=== PATIENT | male | born 1930 | race Caucasian/White ===

== ENCOUNTER 2017-11-07 10:18 | Inpatient (IN) | payer MEDICARE, OTHER ==
[~2017-11-07] VITALS: Ht 160 cm; Wt 68.0 kg
[2017-11-07 10:26] VITALS: BP 122/61; PULSE 66; RESP 20; TEMP 97.8; O2SAT 98
--- NOTE | 2017-11-07 10:54 | RADRPT ---
EXAM DATE/TIME: 11/07/2017 10:44 [facility] COMPARISON: No previous studies available for comparison. INDICATIONS : Coughing up blood for three days. MEDICAL HISTORY : None. SURGICAL HISTORY : No pertinent surgical history. ENCOUNTER: Initial ACUITY: 3 days PAIN SCORE: 0/10 LOCATION: Bilateral chest FINDINGS: PA and lateral views of the chest demonstrate the lungs to be symmetrically aerated without evidence of mass, infiltrate or effusion. There is mild elevation left hemidiaphragm. The heart is at the uppe r limits of normal in terms of size. Aorta is calcified. Osseous structures are intact. CONCLUSION: No acute disease. Rosalio Palumbo Jr., MD on November 07, 2017 at 10:51 Board Certified Radiologist. This report was verified electronically.
[2017-11-07 11:54] LABS: AUTOMATED NEUTROPHIL # 6.1 TH/MM3 (1.8-7.7); BASOPHIL % 0.6 % (0.0-2.0); EOSINOPHIL # 0.1 TH/MM3 (0-0.4); EOSINOPHIL % 0.7 % (0.0-4.0); HEMATOCRIT 30.3 % (39.0-51.0); HEMOGLOBIN 10.3 GM/DL (13.0-17.0); LYMPH % 11.3 % (9.0-44.0); LYMPHOCYTE # 0.8 TH/MM3 (1.0-4.8); MEAN CELL VOLUME 83.7 FL (80.0-100.0); MEAN CORPUSCULAR HEMOGLOBIN 28.6 PG (27.0-34.0); MEAN CORPUSCULAR HGB CONC 34.2 % (32.0-36.0); MEAN PLATELET VOLUME 7.8 FL (7.0-11.0); MONO % 5.3 % (0.0-8.0); MONOCYTE # 0.4 TH/MM3 (0-0.9); NEUT % 82.1 % (16.0-70.0); PLATELET COUNT 219 TH/MM3 (150-450); RED BLOOD COUNT 3.61 MIL/MM3 (4.50-5.90); RED CELL DISTRIBUTION WIDTH 17.1 % (11.6-17.2); WHITE BLOOD COUNT 7.5 TH/MM3 (4.0-11.0)
[2017-11-07 12:01] LABS: INTERNATIONAL NORMALIZED RATIO 1.3 RATIO; PROTHROMBIN TIME - PATIENT 13.1 SEC (9.8-11.6)
[2017-11-07 12:10] LABS: ALBUMIN 3.4 GM/DL (3.4-5.0); ALT (GPT) 19 U/L (12-78); AST (GOT) 19 U/L (15-37); BICARBONATE 26.7 MEQ/L (21.0-32.0); BLOOD UREA NITROGEN 19 MG/DL (7-18); CALCIUM 8.9 MG/DL (8.5-10.1); CHLORIDE 107 MEQ/L (98-107); GLOMERULAR FILTRATION RATE 41 ML/MIN (>89); GLUCOSE,RANDOM 118 MG/DL (74-106); SODIUM (NA) 141 MEQ/L (136-145)
[2017-11-07 12:13] LABS: ALKALINE PHOSPHATASE 48 U/L (45-117); TOTAL BILIRUBIN ADULT 0.9 MG/DL (0.2-1.0); TOTAL PROTEIN 6.9 GM/DL (6.4-8.2)
[2017-11-07 14:06] VITALS: BP 143/71; PULSE 66; RESP 25; O2SAT 100
--- NOTE | 2017-11-07 14:12 | PD ---
HPI Chief Complaint: Respiratory Symptoms Time Seen by Provider: 14:00 Travel History International Travel<30 days: No Contact w/Intl Traveler<30days: No Traveled to known affect area: No History of Present Illness HPI 87 y/o male presents with coughing up blood for the past couple of days. He denies any other concurrent complaints. He does note history of prior blood clots to his arms and is currently on an aspirin. He denies specific modifying factors. Quality is bright red. He states when he has had this before he has had pneumonia. History is limited from patient. PFSH Past Medical History Atrial Fibrillation: Yes COPD: Yes Diminished Hearing: Yes ([place]) Genitourinary: Yes (PROSTATE ) Medical other: Yes (BLOT CLOT TO ARM ) Neurologic: Yes (MENINGIOMA ) Respiratory: Yes Pneumonia: Yes Tetanus Vaccination: Unknown Influenza Vaccination: Yes Past Surgical History Abdominal Surgery: Yes (COLON RESECTION ) Other Surgery: Yes (THYROIDECTOMY, L ADRENAL GLAND REMOVED ) Social History Alcohol Use: Yes (BUDLIGHT PER DAY ) Tobacco Use: No (QUIT 1982 ) Substance Use: No Allergies-Medications (Allergen,Severity, Reaction): Coded Allergies: No Known Allergies (Verified Allergy, Unknown, 11/07/17) Review of Systems Except as stated in HPI: all other systems reviewed are Neg Physical Exam Narrative GENERAL: 87-year-old male in no apparent distress SKIN: Focused skin assessment warm/dry. HEAD: Atraumatic. Normocephalic. EYES: No scleral icterus. No injection or drainage. ENT: No nasal bleeding or discharge. Mucous membranes pink and moist. NECK: Trachea midline. CARDIOVASCULAR: irregular rate and rhythm. No murmur appreciated. RESPIRATORY: No accessory muscle use. Clear to auscultation. Breath sounds equal bilaterally. MUSCULOSKELETAL: No obvious deformities. No clubbing. No cyanosis. No edema. NEUROLOGICAL: Awake. moves extremities. Normal speech. Data Data Last Documented VS Vital Signs Date Time Temp Pulse Resp B/P (MAP) Pulse Ox O2 Delivery O2 Flow Rate FiO2 11/07/17 15:00 60 18 99 Room Air 11/07/17 10:26 97.8 Orders Orders Complete Blood Count With Diff (11/07/17 10:28) Comprehensive Metabolic Panel (11/07/17 10:28) Prothrombin Time / Inr (Pt) (11/07/17 10:28) Act Partial Throm Time (Ptt) (11/07/17 10:28) Type And Screen (11/07/17 10:28) Chest, Pa & Lat (11/07/17 ) Electrocardiogram (11/07/17 ) Ct Pulmonary Angiogram (11/07/17 ) Iodixanol 320 Inj (Rad Spec) (Visipaque (11/07/17 14:51) Ceftriaxone Inj (Rocephin Inj) (11/07/17 15:15) Azithromycin Inj (Zithromax Inj) (11/07/17 15:15) Admit Order (Ed Use Only) (11/07/17 15:22) Labs Laboratory Tests Test 11/07/17 10:58 White Blood Count 7.5 TH/MM3 Red Blood Count 3.61 MIL/MM3 Hemoglobin 10.3 GM/DL Hematocrit 30.3 % Mean Corpuscular Volume 83.7 FL Mean Corpuscular Hemoglobin 28.6 PG Mean Corpuscular Hemoglobin Concent 34.2 % Red Cell Distribution Width 17.1 % Platelet Count 219 TH/MM3 Mean Platelet Volume 7.8 FL Neutrophils (%) (Auto) 82.1 % Lymphocytes (%) (Auto) 11.3 % Monocytes (%) (Auto) 5.3 % Eosinophils (%) (Auto) 0.7 % Basophils (%) (Auto) 0.6 % Neutrophils # (Auto) 6.1 TH/MM3 Lymphocytes # (Auto) 0.8 TH/MM3 Monocytes # (Auto) 0.4 TH/MM3 Eosinophils # (Auto) 0.1 TH/MM3 Basophils # (Auto) 0.0 TH/MM3 CBC Comment DIFF FINAL Differential Comment Prothrombin Time 13.1 SEC Prothromb Time International Ratio 1.3 RATIO Activated Partial Thromboplast Time 33.0 SEC Blood Urea Nitrogen 19 MG/DL Creatinine 1.60 MG/DL Random Glucose 118 MG/DL Total Protein 6.9 GM/DL Albumin 3.4 GM/DL Calcium Level 8.9 MG/DL Alkaline Phosphatase 48 U/L Aspartate Amino Transf (AST/SGOT) 19 U/L Alanine Aminotransferase (ALT/SGPT) 19 U/L Total Bilirubin 0.9 MG/DL Sodium Level 141 MEQ/L Potassium Level 3.6 MEQ/L Chloride Level 107 MEQ/L Carbon Dioxide Level 26.7 MEQ/L Anion Gap 7 MEQ/L Estimat Glomerular Filtration Rate 41 ML/MIN MDM Medical Decision Making Medical Screen Exam Complete: Yes Emergency Medical Condition: Yes Medical Record Reviewed: Yes (Past history confirmed) Interpretation(s) CBC & BMP Diagram 11/07/17 10:58 Total Protein 6.9, Albumin 3.4, Calcium Level 8.9, Alkaline Phosphatase 48, Aspartate Amino Transf (AST/SGOT) 19, Alanine Aminotransferase (ALT/SGPT) 19, Total Bilirubin 0.9 Last 24 hours Impressions Chest X-Ray 11/07/17 0000 Signed Impressions: Service Date/Time: Tuesday, November 07, 2017 10:44 - CONCLUSION: No acute disease. Rosalio Palumbo Jr., MD CT Angiography 11/07/17 0000 Signed Impressions: Service Date/Time: Tuesday, November 07, 2017 14:40 - CONCLUSION: Bibasilar airspace disease worse on the left. Source of hemorrhage is not identified. Presumed location would be the left lower lobe. Josef Pandya MD FACR Differential Diagnosis PE, pneumonia, URI, anemia Narrative Course We will add on CT chest protocol from triage and reevaluate Review of CT will dose with antibiotics and admit. Will have hemoglobin trended given last one was normal multiple years ago. Physician Communication Physician Communication dr crocker requests full admit given bibasilar airspace disease Diagnosis Primary Impression: Hemoptysis Additional Impressions: Bilateral pneumonia Qualified Codes: J18.9 - Pneumonia, unspecified organism Anemia Qualified Codes: D64.9 - Anemia, unspecified Admitting Information Admitting Physician Requests: Admit Rhona León MD Nov 07, 2017 14:12
[2017-11-07] MEDS ORDERED: IODIXANOL 320 MG/ML 10 ML VIAL (for RAD SPEC) IVCONTRAST ONE (14:51)
[2017-11-07 15:00] VITALS: BP 143/76; PULSE 60; RESP 18; O2SAT 99
--- NOTE | 2017-11-07 15:07 | RADRPT ---
EXAM DATE/TIME: 11/07/2017 14:40 [facility] COMPARISON: No previous studies available for comparison. INDICATIONS : Short of breath with coughing up blood. IV CONTRAST: 65 cc Visipaque (iodixanol) IV RADIATION DOSE: 21.07 CTDIvol (mGy) MEDICAL HISTORY : Meningioma, Afib SURGICAL HISTORY : Colon resection. Thyroidectomy. ENCOUNTER: Initial ACUITY: 2 days PAIN SCALE: 5/10 LOCATION: Bilateral chest TECHNIQUE: Volumetric scanning of the chest was performed using a pulmonary embolism protocol MIP images were re constructed. Using automated exposure control and adjustment of the mA and/or kV according to patien t size, radiation dose was kept as low as reasonably achievable to obtain optimal diagnostic quality images. DICOM format image data is available electronically for review and comparison. Follow-up recommendations for detected pulmonary nodules are based at a minimum on nodule size and pa tient risk factors according to Fleischner Society Guidelines. FINDINGS: Minimal bibasilar parenchymal changes worse on the left. The parenchymal changes the left look like hemorrhage. There is no axillary adenopathy. There is no mediastinal adenopathy. There is no evidence for central pulmonary emboli. There is mild compensated cardiomegaly with minimal coronary calcifications. Scattered well-circumscribed low density lesions are present in the liver incompletely evaluated on t vivek's exam but probably cysts. CONCLUSION: Bibasilar airspace disease worse on the left. Source of hemorrhage is not identified. Presumed loca tion would be the left lower lobe. Josef Pandya MD FACR on November 07, 2017 at 15:03 Board Certified Radiologist. This report was verified electronically.
[2017-11-07] MEDS ORDERED: AZITHROMYCIN INJ 500 MG in SODIUM CHLOR 0.9% 250 ML INJ 250 ML IV ONE (15:15)
[2017-11-07] MEDS ORDERED: cefTRIAXone INJ 1,000 MG in SODIUM CHLORIDE 0.9% INJ 100 ML IV ONE (15:15)
[2017-11-07] MEDS ORDERED: LIPO150C3 PO (15:34)
[2017-11-07] MEDS ORDERED: LEVO125T4 PO (15:34)
[2017-11-07] MEDS ORDERED: NEXI40CA PO (15:34)
[2017-11-07] MEDS ORDERED: EXFO10TA2 PO (15:34)
[2017-11-07] MEDS ORDERED: FLUT50SP EACH NARE (15:34)
[2017-11-07] MEDS ORDERED: IPRA17I INH (15:34)
[2017-11-07] MEDS ORDERED: ASPI-516 CHEW (15:34)
[2017-11-07] MEDS ORDERED: AZEL1SPR2 EACH NARE (15:34)
[2017-11-07] MEDS ORDERED: METF500T PO (15:34)
[2017-11-07] MEDS ORDERED: FURO20TA PO (15:34)
[2017-11-07] MEDS ORDERED: ATEN25TA PO (15:34)
[2017-11-07] MEDS ORDERED: KLOR10TA PO (15:34)
[2017-11-07 16:00] VITALS: BP 143/76; PULSE 55; RESP 26; O2SAT 99
[2017-11-07] MEDS ORDERED: SENNOSIDES 8.6 MG TAB PO PRN (16:15)
[2017-11-07] MEDS ORDERED: BISACODYL 10 MG SUPP RECTAL PRN (16:15)
[2017-11-07] MEDS ORDERED: ACETAMINOPHEN 325 MG TAB PO PRN (16:15)
[2017-11-07] MEDS ORDERED: DEXTROSE 50% IN WATER 50 ML VIAL(D50) IV PUSH PRN (16:15)
[2017-11-07] MEDS ORDERED: RESP: ALBUTEROL 2.5 MG/IPRATROPIUM 0.5 MG NEB (PRN) NEB (16:15)
[2017-11-07] MEDS ORDERED: TEMAZEPAM 15 MG CAP PO PRN (16:15)
[2017-11-07] MEDS ORDERED: MAGNESIUM HYDROXIDE SUSP 30 ML CUP PO PRN (16:15)
[2017-11-07] MEDS ORDERED: ONDANSETRON HCL 4 MG/2 ML VIAL IVP PRN (16:15)
[2017-11-07] MEDS ORDERED: SODIUM CHLORIDE 0.9% FLUSH 10 ML FLUSH IV FLUSH PRN (16:15)
[2017-11-07] MEDS ORDERED: NALOXONE HCL 0.4 MG/ML AMP IV PUSH PRN (16:15)
[2017-11-07] MEDS ORDERED: GLUCAGON 1 MG/ML VIAL OTHER PRN (16:15)
[2017-11-07] MEDS ORDERED: ENOXAPARIN SODIUM 40 MG/0.4 ML SYRINGE SQ SCH (16:15)
[2017-11-07] MEDS ORDERED: LACTULOSE SYRUP 20 GM/30 ML CUP PO PRN (16:15)
[2017-11-07] MEDS: INSULIN ASPART SUPPLEMENTAL SCALE SQ SCH ×2 (17:00→20:24)
[2017-11-07] MEDS: SODIUM CHLOR 0.9% 1000 ML INJ 1,000 ML IV SCH (17:00)
[2017-11-07 19:45] VITALS: BP 122/65; PULSE 65; RESP 17; TEMP 98.4; O2SAT 99
[2017-11-07] MEDS: RESP: ALBUTEROL 2.5 MG/IPRATROPIUM 0.5 MG NEB (SCH) NEB (20:12)
[2017-11-07] MEDS: SODIUM CHLORIDE 0.9% FLUSH 10 ML FLUSH IV FLUSH SCH (20:23)
[2017-11-07] MEDS: FLUTICASONE PROPIONATE 50 MCG/ACT 16 GM NASAL SPRAY EACH NARE SCH (20:23)
[2017-11-07] MEDS: DOCUSATE SODIUM 50 MG/SENNA 8.6 MG TAB PO SCH (20:24)
--- NOTE | 2017-11-07 23:18 | HHI.HP ---
HPI Service [facility] Hospitalists Primary Care Physician Jackson Garcia MD Admission Diagnosis Hemoptysis, bibasilar airspace disease, anemia Diagnoses: (1) Hemoptysis (2) Anemia (3) Bilateral pneumonia Chief Complaint: coughing up blood Travel History International Travel<30 Days: No Contact w/Intl Traveler <30 Da: No Traveled to Known Affected Are: No History of Present Illness Mr. Day is a pleasant 87-year-old male with a extensive history of cancer including cancer of the thyroid, colon, adrenal gland, and prostate who presented to the emergency room on 11/07/2017 complaining of hemoptysis. Initial chest x-ray was negative for acute disease but CT PA showed bibasilar airspace disease worse on left than right. Source of hemorrhage was not specifically identified though presumed to be located in the left lower lobe. The patient was admitted to [facility] for medical management. The patient is seen in his hospital room. He reports a 2-3 day history of hemoptysis. He states he had a similar episode previously and was diagnosed with pneumonia. He denies any shortness of breath, fever, chills, nausea, vomiting, diarrhea, chest pain, or recent illness. He is anxious to return home to care for his who suffers from dementia despite the fact that she is currently being watched over by his [id number]. The patient himself has some mild cognitive deficits apparent. 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 Reported Medications Reported Meds & Active Scripts Active Reported Azelastine Nasal [place] (Azelastine HCl) 0.1% [place]enton 1 [place]enton EACH NARE BID Fluticasone Nasal [place] 50 Mcg/Act Naspr 50 Mcg EACH NARE BID 50 mcg/spray Atrovent HFA 12.9 GM Inh (Ipratropium Redgranite) 17 Mcg/Actuation Aer 2 Puff INH BID Aspirin 81 Mg Chew 81 Mg CHEW DAILY Nexium (Esomeprazole DR) 40 Mg Capdr 40 Mg PO DAILY Atenolol 25 Mg Tab 25 Mg PO DAILY Metformin (Metformin HCl) 500 Mg Tab 500 Mg PO DAILY With a meal Furosemide 20 Mg Tab 20 Mg PO DAILY Klor-Con 10 (Potassium Chloride) 10 Meq Tab 10 Meq PO DAILY Levothyroxine (Levothyroxine Sodium) 125 Mcg Tab 125 Mcg PO DAILY Lipofen (Fenofibrate) 150 Mg Cap 150 Mg PO DAILY Exforge (Amlodipine-Valsartan) 10-320 Mg Tab 1 Tab PO DAILY . Allergies: Coded Allergies: No Known Allergies (Verified Allergy, Unknown, 11/07/17) Family History Patient's father at age 57 from silicosis Mother in her 90s from complications related to the aging process He has a brothers age 86, 75, and early 70s who are alive and well He has sisters who are aged 79 and 85 who are also alive and well . Social History Tobacco: Smoked from the age of 16 until 1982 - smoked 2 packs per day Alcohol: Drinks one [place]cock Light with lunch every day . Physical Exam Vital Signs Vital Signs Date Time Temp Pulse Resp B/P (MAP) Pulse Ox O2 Delivery O2 Flow Rate FiO2 11/07/17 19:45 98.4 65 17 122/65 (84) 99 11/07/17 17:10 98 11/07/17 16:00 55 26 143/76 (98) 99 Room Air 11/07/17 15:00 60 18 143/76 (98) 99 Room Air 11/07/17 14:10 100 Room Air 11/07/17 14:06 66 25 143/71 (95) 100 Room Air 11/07/17 10:26 97.8 66 20 122/61 (81) 98 Physical Exam Constitutional: This is an elderly male patient who is well-nourished and well- developed patient, in no apparent distress. Integumentary: No rashes. Cool and dry. Multiple bruises in various stages of healing noted on bilateral upper extremities. HEAD: Atraumatic. Normocephalic. EYES: No scleral icterus. No injection or drainage. ENT: Nose without bleeding, purulent drainage. NECK: Trachea midline. No JVD. CARDIOVASCULAR: Irregularly irregular without murmurs, gallops, or rubs. RESPIRATORY: Breath sounds diminished at bases bilaterally. No wheezes, rales, or rhonchi. GASTROINTESTINAL: Abdomen soft, non-tender, nondistended. No guarding. MUSCULOSKELETAL: Extremities without clubbing, cyanosis, or edema. No calf tenderness. NEUROLOGICAL: Awake and alert with mild cognitive impairments. Motor and sensory grossly within normal limits. Normal speech. . Laboratory Laboratory Tests Test 11/07/17 10:58 White Blood Count 7.5 Red Blood Count 3.61 Hemoglobin 10.3 Hematocrit 30.3 Mean Corpuscular Volume 83.7 Mean Corpuscular Hemoglobin 28.6 Mean Corpuscular Hemoglobin Concent 34.2 Red Cell Distribution Width 17.1 Platelet Count 219 Mean Platelet Volume 7.8 Neutrophils (%) (Auto) 82.1 Lymphocytes (%) (Auto) 11.3 Monocytes (%) (Auto) 5.3 Eosinophils (%) (Auto) 0.7 Basophils (%) (Auto) 0.6 Neutrophils # (Auto) 6.1 Lymphocytes # (Auto) 0.8 Monocytes # (Auto) 0.4 Eosinophils # (Auto) 0.1 Basophils # (Auto) 0.0 CBC Comment DIFF FINAL Differential Comment Prothrombin Time 13.1 Prothromb Time International Ratio 1.3 Activated Partial Thromboplast Time 33.0 Blood Urea Nitrogen 19 Creatinine 1.60 Random Glucose 118 Total Protein 6.9 Albumin 3.4 Calcium Level 8.9 Alkaline Phosphatase 48 Aspartate Amino Transf (AST/SGOT) 19 Alanine Aminotransferase (ALT/SGPT) 19 Total Bilirubin 0.9 Sodium Level 141 Potassium Level 3.6 Chloride Level 107 Carbon Dioxide Level 26.7 Anion Gap 7 Estimat Glomerular Filtration Rate 41 Result Diagram: 11/07/17 1058 11/07/17 1058 Imaging Last Impressions Chest X-Ray 11/07/17 0000 Signed Impressions: Service Date/Time: Tuesday, November 07, 2017 10:44 - CONCLUSION: No acute disease. Rosalio Palumbo Jr., MD CT Angiography 11/07/17 0000 Signed Impressions: Service Date/Time: Tuesday, November 07, 2017 14:40 - CONCLUSION: Bibasilar airspace disease worse on the left. Source of hemorrhage is not identified. Presumed location would be the left lower lobe. Josef Pandya MD FACR Caprini VTE Risk Assessment Caprini VTE Risk Assessment: Mod/High Risk (score >= 2) Caprini Risk Assessment Model Point Value = 1 Point Value = 2 Point Value = 3 Point Value = 5 Age 41-60 Minor surgery BMI > 25 kg/m2 Swollen legs Varicose veins or History of unexplained or recurrent spontaneous Oral contraceptives or hormone replacement Sepsis (< 1 month) Serious lung disease, including pneumonia (< 1 month) Abnormal pulmonary function Acute myocardial infarction Congestive heart failure (< 1 month) History of inflammatory bowel disease Medical patient at bed rest Age 61-74 Arthroscopic surgery Major open surgery (> 45 min) Laparoscopic surgery (> 45 min) Malignancy Confined to bed (> 72 hours) Immobilizing plaster cast Central venous access Age >= 75 History of VTE Family history of VTE Factor V Leiden Prothrombin [id number] Lupus anticoagulant Anticardiolipin antibodies Elevated serum homocysteine Heparin-induced thrombocytopenia Other congenital or acquired thrombophilia Stroke (< 1 month) Elective arthroplasty Hip, pelvis, or leg fracture Acute spinal cord injury (< 1 month) Prophylaxis Regimen Total Risk Factor Score Risk Level Prophylaxis Regimen 0-1 Low Early ambulation 2 Moderate Order ONE of the following: *Sequential Compression Device (SCD) *Heparin 5000 units SQ BID 3-4 Higher Order ONE of the following medications: *Heparin 5000 units SQ TID *Enoxaparin/Lovenox 40 mg SQ daily (WT < 150 kg, CrCl > 30 mL/min) *Enoxaparin/Lovenox 30 mg SQ daily (WT < 150 kg, CrCl > 10-29 mL/min) *Enoxaparin/Lovenox 30 mg SQ BID (WT < 150 kg, CrCl > 30 mL/min) AND/OR *Sequential Compression Device (SCD) 5 or more Highest Order ONE of the following medications: *Heparin 5000 units SQ TID (Preferred with Epidurals) *Enoxaparin/Lovenox 40 mg SQ daily (WT < 150 kg, CrCl > 30 mL/min) *Enoxaparin/Lovenox 30 mg SQ daily (WT < 150 kg, CrCl > 10-29 mL/min) *Enoxaparin/Lovenox 30 mg SQ BID (WT < 150 kg, CrCl > 30 mL/min) AND *Sequential Compression Device (SCD) Assessment and Plan Problem List: (1) Bilateral pneumonia ICD Code: J18.9 - Pneumonia, unspecified organism Status: Acute (2) Anemia ICD Code: D64.9 - Anemia, unspecified Status: Acute (3) Hemoptysis ICD Code: R04.2 - Hemoptysis Status: Acute Assessment and Plan Mr. Day is a pleasant 87-year-old male with a extensive history of cancer including cancer of the thyroid, colon, adrenal gland, and prostate who presented to the emergency room on 11/07/2017 complaining of hemoptysis. Initial chest x-ray was negative for acute disease but CT PA showed bibasilar airspace disease worse on left than right. Source of hemorrhage was not specifically identified though presumed to be located in the left lower lobe. The patient was admitted to [facility] for medical management. Bilateral pneumonia - antibiotics: IV Azithromycin and Rocephin - Duo nebulizers every 2 hours as needed for shortness of breath or wheezing - Duo nebulizers every 4 hours while awake - Consult pulmonology - appreciate assistance - Consult physical therapy to avoid debility Anemia possibly secondary to hemoptysis - most recent labs for comparison are from 2005 - Hemoglobin 10.3, hematocrit 30.3 - Recheck CBC in a.m. - Follow trends - transfuse if hemoglobin drops kidney 7 Acute on chronic renal failure - BUN 19, creatinine 1.60, EGFR 40 - Gentle IV fluid hydration with normal saline at 75 cc per hour - Repeat BMP in a.m. and follow trends in renal indices - Avoid nephrotoxins DVT prophylaxis - chemoprophylaxis contraindicated with hemoptysis/anemia; SCDs . Discussed Condition With Patient, RN, Dr. Brock Physician Certification 2 Midnight Certification Type: Continued Stay Order for Inpatient Services The services are ordered in accordance with Medicare regulations or non- Medicare payer requirements, as applicable. In the case of services not specified as inpatient-only, they are appropriately provided as inpatient services in accordance with the 2-midnight benchmark. Estimated LOS (days): 3 days is the estimated time the patient will need to remain in the hospital, assuming treatment plan goals are met and no additional complications. Post-Hospital Plan: Not yet determined Problem Qualifiers (1) Anemia: Qualified Codes: D64.9 - Anemia, unspecified (2) Bilateral pneumonia: Qualified Codes: J18.9 - Pneumonia, unspecified organism Dede Ham Nov 07, 2017 23:18
[2017-11-07] MEDS ORDERED: MELATONIN 5 MG TAB PO PRN (23:45)
[2017-11-08] VITALS (7 sets, daily range): BP systolic 109–130; BP diastolic 56–79; PULSE 60–70; RESP 16–18; TEMP 96.6–97.5; O2SAT 96–100
[2017-11-08] MEDS: SODIUM CHLOR 0.9% 1000 ML INJ 1,000 ML IV SCH ×2 (03:00→16:32)
[2017-11-08] MEDS: LEVOTHYROXINE SODIUM 125 MCG TAB PO SCH (05:33)
[2017-11-08 07:02] LABS: AUTOMATED NEUTROPHIL # 3.9 TH/MM3 (1.8-7.7); BASOPHIL % 0.8 % (0.0-2.0); EOSINOPHIL # 0.1 TH/MM3 (0-0.4); EOSINOPHIL % 2.5 % (0.0-4.0); HEMATOCRIT 28.8 % (39.0-51.0); HEMOGLOBIN 9.7 GM/DL (13.0-17.0); LYMPH % 14.2 % (9.0-44.0); LYMPHOCYTE # 0.7 TH/MM3 (1.0-4.8); MEAN CORPUSCULAR HEMOGLOBIN 28.2 PG (27.0-34.0); MEAN CORPUSCULAR HGB CONC 33.6 % (32.0-36.0); MEAN PLATELET VOLUME 7.9 FL (7.0-11.0); MONO % 6.6 % (0.0-8.0); MONOCYTE # 0.3 TH/MM3 (0-0.9); NEUT % 75.9 % (16.0-70.0); PLATELET COUNT 203 TH/MM3 (150-450); RED BLOOD COUNT 3.42 MIL/MM3 (4.50-5.90); RED CELL DISTRIBUTION WIDTH 16.9 % (11.6-17.2); WHITE BLOOD COUNT 5.2 TH/MM3 (4.0-11.0)
[2017-11-08] MEDS: RESP: ALBUTEROL 2.5 MG/IPRATROPIUM 0.5 MG NEB (SCH) NEB ×4 (07:37→20:00)
[2017-11-08 07:47] LABS: BICARBONATE 25.4 MEQ/L (21.0-32.0); CALCIUM 8.6 MG/DL (8.5-10.1); CREATININE 1.18 MG/DL (0.60-1.30)
[2017-11-08] MEDS: VALSARTAN 160 MG TAB PO SCH (08:20)
[2017-11-08] MEDS: ATENOLOL 25 MG TAB PO SCH (08:20)
[2017-11-08] MEDS: PANTOPRAZOLE SOD 40 MG DELAYED RELEASE TAB PO SCH (08:20)
[2017-11-08] MEDS: FENOFIBRATE 145 MG TAB PO SCH (08:20)
[2017-11-08] MEDS: POTASSIUM CHLORIDE 10 MEQ CONTROLLED RELEASE TAB PO SCH (08:21)
[2017-11-08] MEDS: SODIUM CHLORIDE 0.9% FLUSH 10 ML FLUSH IV FLUSH SCH ×2 (08:21→21:00)
[2017-11-08] MEDS: DOCUSATE SODIUM 50 MG/SENNA 8.6 MG TAB PO SCH ×2 (08:21→22:09)
[2017-11-08] MEDS: FUROSEMIDE 20 MG TAB PO SCH (08:21)
[2017-11-08] MEDS: ASPIRIN 81 MG CHEW TAB CHEW SCH (08:21)
[2017-11-08] MEDS: FLUTICASONE PROPIONATE 50 MCG/ACT 16 GM NASAL SPRAY EACH NARE SCH ×2 (08:21→22:00)
--- NOTE | 2017-11-08 09:19 | HHI.PR ---
Subjective Remarks In bed says he did not sleep overnight, patient says he is using BIPAP at night but doesn't have the machine with him is at home. Still with cough and some blood in it . No fever or chills. Objective Vitals Vital Signs Date Time Temp Pulse Resp B/P (MAP) Pulse Ox O2 Delivery O2 Flow Rate FiO2 11/08/17 08:00 96.9 65 16 124/66 (85) 98 11/08/17 04:15 97.0 66 18 129/79 (96) 99 11/08/17 00:13 97.0 66 18 129/70 (89) 100 11/07/17 19:45 98.4 65 17 122/65 (84) 99 11/07/17 17:10 98 11/07/17 16:00 55 26 143/76 (98) 99 Room Air 11/07/17 15:00 60 18 143/76 (98) 99 Room Air 11/07/17 14:10 100 Room Air 11/07/17 14:06 66 25 143/71 (95) 100 Room Air 11/07/17 10:26 97.8 66 20 122/61 (81) 98 I/O 11/07/17 11/07/17 11/07/17 11/08/17 11/08/17 11/08/17 07:00 15:00 23:00 07:00 15:00 23:00 Intake Total 340 ml 480 ml Output Total 400 ml Balance 340 ml 80 ml Intake Oral 240 ml 480 ml IV Total 100 ml Output Urine Total 400 ml # Voids 2 # Bowel Movements 0 0 Result Diagram: 11/08/17 0635 11/08/17 0635 Imaging Last Impressions Chest X-Ray 11/07/17 0000 Signed Impressions: Service Date/Time: Tuesday, November 07, 2017 10:44 - CONCLUSION: No acute disease. Rosalio Palumbo Jr., MD CT Angiography 11/07/17 0000 Signed Impressions: Service Date/Time: Tuesday, November 07, 2017 14:40 - CONCLUSION: Bibasilar airspace disease worse on the left. Source of hemorrhage is not identified. Presumed location would be the left lower lobe. Josef Pandya MD FACR Objective Remarks GA: Pleasant elderly mal, well-nourished and well-developed patient, in no apparent distress. SKIN: No rashes. Cool and dry. Multiple bruises in various stages of healing noted on bilateral upper extremities. HEAD: Atraumatic. Normocephalic. EYES: No scleral icterus. No injection or drainage. ENT: Nose without bleeding, purulent drainage. NECK: Trachea midline. No JVD. CARDIOVASCULAR: Irregularly irregular without murmurs, gallops, or rubs. RESPIRATORY: Breath sounds diminished at bases bilaterally. No wheezes, rales, or rhonchi. GASTROINTESTINAL: Abdomen soft, non-tender, nondistended. No guarding. MUSCULOSKELETAL: Extremities without clubbing, cyanosis, or edema. No calf tenderness. NEUROLOGICAL: Awake and alert with mild cognitive impairments. Motor and sensory grossly within normal limits. Normal speech. A/P Problem List: (1) Bilateral pneumonia ICD Code: J18.9 - Pneumonia, unspecified organism Status: Acute (2) Anemia ICD Code: D64.9 - Anemia, unspecified Status: Acute (3) Hemoptysis ICD Code: R04.2 - Hemoptysis Status: Acute Assessment and Plan Mr. Day is a pleasant 87-year-old male with a extensive history of cancer including cancer of the thyroid, colon, adrenal gland, and prostate who presented to the emergency room on 11/07/2017 complaining of hemoptysis. Initial chest x-ray was negative for acute disease but CT PA showed bibasilar airspace disease worse on left than right. Source of hemorrhage was not specifically identified though presumed to be located in the left lower lobe. The patient was admitted to [facility] for medical management. Bilateral pneumonia Hemoptysis H/O sleep apnea patient using BiPAP at night encourage to bring his own machine to use at night. Antibiotics: IV Azithromycin and Rocephin Duo nebulizers every 2 hours as needed for shortness of breath or wheezing Duo nebulizers every 4 hours while awake Consult pulmonology - appreciate assistance Consult physical therapy to avoid debility O2 supplement as need keep O2 sat > 92 % Anemia possibly secondary to hemoptysis - most recent labs for comparison are from 2005 Hemoglobin 10.3, hematocrit 30.3 on admission. Stable Recheck CBC in a.m. Monitor H/H - transfuse if hemoglobin drops below 7 Acute on chronic renal failure BUN 19, creatinine 1.60, EGFR 40 Gentle IV fluid hydration with normal saline at 75 cc per hour Repeat BMP in a.m. and follow trends in renal indices Avoid nephrotoxins DVT prophylaxis - chemoprophylaxis contraindicated with hemoptysis/anemia; SCDs Discussed Condition With Patient, nurse Problem Qualifiers (1) Bilateral pneumonia: Qualified Codes: J18.9 - Pneumonia, unspecified organism (2) Anemia: Qualified Codes: D64.9 - Anemia, unspecified Candida Massey MD Nov 08, 2017 09:19
[2017-11-08] MEDS ORDERED: PNEUMOCOCCAL POLYVALENT INJ 25 MCG/0.5 ML SYR IM ONE (10:00)
[2017-11-08] MEDS: cefTRIAXone INJ 1,000 MG in SODIUM CHLORIDE 0.9% INJ 100 ML IV SCH (16:31)
[2017-11-08] MEDS ORDERED: AZITHROMYCIN INJ 500 MG in SODIUM CHLOR 0.9% 250 ML INJ 250 ML IV SCH (17:00)
[2017-11-08] MEDS ORDERED: diphenhydrAMINE HCL 25 MG CAP PO ONE (18:30)
--- NOTE | 2017-11-08 23:39 | EKG ---
Date Performed: 11/07/2017 Time Performed: 13:57:44 PTAGE: 87 years EKG: ATRIAL FIBRILLATION WITH ABERRANT CONDUCTION OR VENTRICULAR PREMATURE COMPLEXES RIGHT BUNDL E BRANCH BLOCK LEFT ANTERIOR FASCICULAR BLOCK MODERATE T-WAVE ABNORMALITY, CONSIDER LATERAL ISCHEMIA ABNORMAL ECG PREVIOUS TRACING : 12/20/2004 22.42 Compared to prior tracing, now in AFib DOCTOR: Carlton Quintero Interpretating Date/Time 11/08/2017 23:37:22
[2017-11-09 00:50] VITALS: BP 111/59; PULSE 62; RESP 17; TEMP 97.8; O2SAT 95
[2017-11-09] MEDS: SODIUM CHLOR 0.9% 1000 ML INJ 1,000 ML IV SCH ×2 (05:28→17:59)
[2017-11-09] MEDS: LEVOTHYROXINE SODIUM 125 MCG TAB PO SCH (06:07)
--- NOTE | 2017-11-09 06:40 | MB ---
cc: Paulo Iverson MD DATE OF CONSULT: 11/08/2017 HISTORY OF PRESENT ILLNESS: The patient is an 87-year-old male with multiple comorbidities which include COPD, atrial fibrillation, hypertension and DVT in upper extremities, thyroid and colon cancer. He presented to [facility] on 11/07 with hemoptysis. The patient states that he coughed up blood 2 days ago and he had another episode of mild hemoptysis early this morning. He denies any associated symptoms of fever, chills or any constitutional symptoms. In addition, he denies any chest pain or shortness of breath. The patient reports decreased p.o. intake which he attributed to his advanced age. Chest x-ray on arrival showed no acute disease. He subsequently underwent a CT angiogram of the chest which showed bibasilar airspace disease, worse on the left. The source of hemoptysis is not identified. He was admitted under hospitalist service and was started on broad-spectrum antibiotics and bronchodilators. The patient was previously on Pradaxa and Xarelto; however, now he only takes aspirin daily. He quit smoking 30 years ago and he used to smoke 2 packs a day for approximately 25-30 years. He denies any use of oxygen at home. The patient is on room air oxygen when seen. He denies any similar presentation in the past. He is anxious to return home to take care of his who suffers from dementia. PAST MEDICAL HISTORY: Significant for COPD, atrial fibrillation, previous DVT upper extremities, previous pneumonia, hypertension, colon cancer, thyroid cancer, left adrenal gland tumor, meningioma. PAST SURGICAL HISTORY: Previous colon resection, previous thyroidectomy, previous left adrenalectomy, skin cancer which was removed. SOCIAL HISTORY: Quit smoking 30 years ago, used to smoke 2 packs per day for 25-30 years. He drinks 1 beer daily during lunch. FAMILY HISTORY: No history of lung cancer. CURRENT MEDICATIONS: Reviewed. REVIEW OF SYSTEMS: As per HPI, the rest of review of systems unremarkable. PHYSICAL EXAMINATION: GENERAL: An 87-year-old male lying in bed in no acute respiratory distress. VITAL SIGNS: Temperature 96.6, pulse of 60, respiratory rate 18, blood pressure 112/56, saturation 98% on room air. HEENT: Atraumatic, normocephalic. Pupils equal, round, reactive to light and accommodation. Extraocular muscles intact. Conjunctivae pink. Nonicteric sclerae. Oral mucosa within normal. NECK: Supple. No JVD, adenopathy or thyromegaly. Trachea in the midline. CARDIOVASCULAR: Regular rate and rhythm. Normal S1, S2. No murmurs, rubs or gallops noted. PULMONARY: Bilateral equal air entry. No rales or wheezing. ABDOMEN: Soft, nontender, no distention. Positive bowel sounds. EXTREMITIES: No cyanosis, clubbing or edema. NEUROLOGIC: No focal or sensory deficit. LABORATORY DATA: Sodium 141, potassium 3.3, chloride 108, CO2 of 25, BUN 13, creatinine 1.18, glucose 126. WBC 5.2, hemoglobin 9.7, hematocrit 28, platelet count 203. INR 1.3, PT 13.1, PTT 33. RADIOGRAPHIC STUDIES: Chest x-ray showed no acute disease. CT angiogram of the chest showed bibasilar airspace disease, worse on the left. IMPRESSION: 1. Bibasilar pneumonia. 2. Hemoptysis. 3. Anemia. 4. Chronic obstructive pulmonary disease. 5. Atrial fibrillation. 6. History of deep vein thrombosis. 7. Mild acute kidney injury. 8. Hypothyroidism. 9. History of thyroid and colon cancer. RECOMMENDATIONS: 1. Oxygen p.r.n. to maintain sats above 92%. 2. Bronchodilators in the form of DuoNeb q.4 plus q.2 p.r.n. for shortness of breath. 3. Continue with antibiotics. He was placed on ceftriaxone and azithromycin. Monitor for signs of infections which include fever and WBC. We will obtain a sputum culture with Gram stain. In addition, we will check Strep pneumoniae and legionella urinary antigen. 4. If there is any recurrence of hemoptysis, we will consider bronchoscopy. Avoid anticoagulants for now. 5. Continue other medical management per primary service. Further recommendations will be based on the hospital course. Thank you for the consultation and allowing us to participate in this patient's care. MD JOLLY Raphael// , 02:46 PM , 10:56 PM
[2017-11-09 07:37] LABS: AUTOMATED NEUTROPHIL # 3.5 TH/MM3 (1.8-7.7); BASOPHIL % 0.8 % (0.0-2.0); EOSINOPHIL # 0.2 TH/MM3 (0-0.4); EOSINOPHIL % 3.8 % (0.0-4.0); HEMATOCRIT 29.3 % (39.0-51.0); HEMOGLOBIN 9.9 GM/DL (13.0-17.0); LYMPH % 15.7 % (9.0-44.0); LYMPHOCYTE # 0.8 TH/MM3 (1.0-4.8); MEAN CELL VOLUME 83.8 FL (80.0-100.0); MEAN CORPUSCULAR HEMOGLOBIN 28.3 PG (27.0-34.0); MEAN CORPUSCULAR HGB CONC 33.8 % (32.0-36.0); MEAN PLATELET VOLUME 7.8 FL (7.0-11.0); MONO % 6.3 % (0.0-8.0); MONOCYTE # 0.3 TH/MM3 (0-0.9); NEUT % 73.4 % (16.0-70.0); PLATELET COUNT 230 TH/MM3 (150-450); RED CELL DISTRIBUTION WIDTH 16.9 % (11.6-17.2); WHITE BLOOD COUNT 4.8 TH/MM3 (4.0-11.0)
[2017-11-09 08:00] VITALS: BP 139/73; PULSE 58; RESP 18; TEMP 96.8; O2SAT 96
[2017-11-09 08:05] LABS: BICARBONATE 25.2 MEQ/L (21.0-32.0); CALCIUM 8.7 MG/DL (8.5-10.1); CREATININE 1.27 MG/DL (0.60-1.30)
[2017-11-09] MEDS: FENOFIBRATE 145 MG TAB PO SCH (08:40)
[2017-11-09] MEDS: PANTOPRAZOLE SOD 40 MG DELAYED RELEASE TAB PO SCH (08:41)
[2017-11-09] MEDS: POTASSIUM CHLORIDE 10 MEQ CONTROLLED RELEASE TAB PO SCH (08:41)
[2017-11-09] MEDS: ASPIRIN 81 MG CHEW TAB CHEW SCH (08:41)
[2017-11-09] MEDS: VALSARTAN 160 MG TAB PO SCH (08:41)
[2017-11-09] MEDS: FUROSEMIDE 20 MG TAB PO SCH (08:41)
[2017-11-09] MEDS: DOCUSATE SODIUM 50 MG/SENNA 8.6 MG TAB PO SCH ×2 (08:41→21:00)
[2017-11-09] MEDS: FLUTICASONE PROPIONATE 50 MCG/ACT 16 GM NASAL SPRAY EACH NARE SCH ×2 (08:42→21:00)
[2017-11-09] MEDS: SODIUM CHLORIDE 0.9% FLUSH 10 ML FLUSH IV FLUSH SCH ×2 (08:45→21:00)
[2017-11-09] MEDS: RESP: ALBUTEROL 2.5 MG/IPRATROPIUM 0.5 MG NEB (SCH) NEB ×4 (09:02→19:34)
[2017-11-09] MEDS ORDERED: AZITHROMYCIN INJ 500 MG in SODIUM CHLOR 0.9% 250 ML INJ 250 ML IV SCH (10:00)
--- NOTE | 2017-11-09 10:48 | HHI.PR ---
Subjective Remarks No events overnight. Patient had 2 episodes of cough one episode with scant bloody tinged sputum. Also developed hives in upper extremities from Azithromycin which was d/fatemeh. Afebrile. Objective Vital Signs Vital Signs Date Time Temp Pulse Resp B/P (MAP) Pulse Ox O2 Delivery O2 Flow Rate FiO2 11/09/17 08:00 96.8 58 18 139/73 (95) 96 11/08/17 23:10 97.3 70 17 109/64 (79) 97 11/08/17 21:02 CPAP 11/08/17 19:10 96.7 70 18 130/67 (88) 96 11/08/17 16:00 97.5 63 17 109/66 (80) 97 11/08/17 12:00 96.6 60 18 112/56 (74) 98 I/O 11/08/17 11/08/17 11/08/17 11/09/17 11/09/17 11/09/17 06:59 14:59 22:59 06:59 14:59 22:59 Intake Total 480 ml 600 ml 480 ml 360 ml Output Total 400 ml 600 ml 250 ml Balance 80 ml 0 ml 480 ml 110 ml Intake Oral 480 ml 600 ml 480 ml 360 ml Output Urine Total 400 ml 600 ml 250 ml # Voids 3 # Bowel Movements 0 0 0 0 Result Diagram: 11/09/1770411/09/17 07 Other Results Last Impressions Chest X-Ray 11/07/17 0000 Signed Impressions: Service Date/Time: Tuesday, November 07, 2017 10:44 - CONCLUSION: No acute disease. Rosalio Palumbo Jr., MD CT Angiography 11/07/17 0000 Signed Impressions: Service Date/Time: Tuesday, November 07, 2017 14:40 - CONCLUSION: Bibasilar airspace disease worse on the left. Source of hemorrhage is not identified. Presumed location would be the left lower lobe. Josef Pandya MD FACR Objective Remarks GENERAL: Patient is 87 yo lying in bed in NAD SKIN: Warm and dry. HEAD: Normocephalic. EYES: No scleral icterus. No injection or drainage. NECK: Supple, trachea midline. No JVD or lymphadenopathy. CARDIOVASCULAR: Regular rate and rhythm without murmurs, gallops, or rubs. RESPIRATORY: Breath sounds equal bilaterally. No accessory muscle use. GASTROINTESTINAL: Abdomen soft, non-tender, nondistended. MUSCULOSKELETAL: No cyanosis, or edema. BACK: Nontender without obvious deformity. No CVA tenderness. Neuro: Awake and alert A/P Assessment and Plan 1. Bibasilar pneumonia. 2. Hemoptysis..improved 3. Anemia. 4. Chronic obstructive pulmonary disease. 5. Atrial fibrillation. 6. History of deep vein thrombosis. 7. Mild acute kidney injury. 8. Hypothyroidism. 9. History of thyroid and colon cancer. Plan Oxygen p.r.n. to maintain sats above 92%. Bronchodilators Continue abx -on ceftriaxone. Monitor for signs of infections( fever and WBC). Follow up on sputum cx, strep pneumonia nad Legionella urinary ag negative Consider bronch if hemoptysis is worse. CXR in am Continue treatment plan. Paulo Iverson MD Nov 09, 2017 10:48
[2017-11-09] MEDS: ATENOLOL 25 MG TAB PO SCH (11:53)
[2017-11-09 12:00] VITALS: BP 144/68; PULSE 73; RESP 18; TEMP 99.2; O2SAT 97
--- NOTE | 2017-11-09 14:22 | HHI.PR ---
Subjective Remarks Resting comfortably in bed No event overnight Denied chest and or short of breath No fever or chills Objective Vitals Vital Signs Date Time Temp Pulse Resp B/P (MAP) Pulse Ox O2 Delivery O2 Flow Rate FiO2 11/09/17 12:00 99.2 73 18 144/68 (93) 97 11/09/17 08:00 96.8 58 18 139/73 (95) 96 11/08/17 23:10 97.3 70 17 109/64 (79) 97 11/08/17 21:02 CPAP 11/08/17 19:10 96.7 70 18 130/67 (88) 96 11/08/17 16:00 97.5 63 17 109/66 (80) 97 I/O 11/08/17 11/08/17 11/08/17 11/09/17 11/09/17 11/09/17 07:00 15:00 23:00 07:00 15:00 23:00 Intake Total 480 ml 600 ml 480 ml 360 ml Output Total 400 ml 600 ml 250 ml Balance 80 ml 0 ml 480 ml 110 ml Intake Oral 480 ml 600 ml 480 ml 360 ml Output Urine Total 400 ml 600 ml 250 ml # Voids 3 # Bowel Movements 0 0 0 0 Result Diagram: 11/09/1770411/09/17 07 Objective Remarks GENERAL: This is a well-nourished, well-developed patient, in no apparent distress. CARDIOVASCULAR: Regular rate and rhythm without murmurs, gallops, or rubs. RESPIRATORY: Left lower lobe crackles GASTROINTESTINAL: Abdomen soft, non-tender, nondistended. Positive bowel sounds MUSCULOSKELETAL: Extremities without clubbing, cyanosis, or edema. Pedal pulses appreciated NEUROLOGICAL: Awake and alert. Moves all extremity. Normal speech.no focal neurological deficit A/P Problem List: (1) Bilateral pneumonia ICD Code: J18.9 - Pneumonia, unspecified organism Status: Acute (2) Anemia ICD Code: D64.9 - Anemia, unspecified Status: Acute (3) Hemoptysis ICD Code: R04.2 - Hemoptysis Status: Acute Assessment and Plan 11/09: Discussed with pulmonology recommended repeating chest x-ray tomorrow, patient wants to be discharged will follow with clearance center manager, monitor temperature and oxygenation A/P: Mr. Day is a pleasant 87-year-old male with a extensive history of cancer including cancer of the thyroid, colon, adrenal gland, and prostate who presented to the emergency room on 11/07/2017 complaining of hemoptysis. Initial chest x-ray was negative for acute disease but CT PA showed bibasilar airspace disease worse on left than right. Source of hemorrhage was not specifically identified though presumed to be located in the left lower lobe. The patient was admitted to [facility] for medical management. Bilateral pneumonia Hemoptysis H/O sleep apnea patient using BiPAP at night encourage to bring his own machine to use at night. Antibiotics: IV Azithromycin and Rocephin Duo nebulizers every 2 hours as needed for shortness of breath or wheezing Duo nebulizers every 4 hours while awake Consult pulmonology - appreciate assistance Consult physical therapy to avoid debility O2 supplement as need keep O2 sat > 92 % Anemia possibly secondary to hemoptysis - most recent labs for comparison are from 2004 Hemoglobin 10.3, hematocrit 30.3 on admission. Stable Recheck CBC in a.m. Monitor H/H - transfuse if hemoglobin drops below 7 Acute on chronic renal failure BUN 19, creatinine 1.60, EGFR 40 Gentle IV fluid hydration with normal saline at 75 cc per hour Repeat BMP in a.m. and follow trends in renal indices Avoid nephrotoxins DVT prophylaxis - chemoprophylaxis contraindicated with hemoptysis/anemia; SCDs Problem Qualifiers (1) Bilateral pneumonia: Qualified Codes: J18.9 - Pneumonia, unspecified organism (2) Anemia: Qualified Codes: D64.9 - Anemia, unspecified Shy Waddell MD Nov 09, 2017 14:22
[2017-11-09] MEDS: cefTRIAXone INJ 1,000 MG in SODIUM CHLORIDE 0.9% INJ 100 ML IV SCH (16:15)
[2017-11-09 19:35] VITALS: O2SAT 97
[2017-11-09 19:50] VITALS: BP 112/57; PULSE 74; RESP 18; TEMP 98.5; O2SAT 97
[2017-11-10] MEDS: LEVOTHYROXINE SODIUM 125 MCG TAB PO SCH (05:26)
--- NOTE | 2017-11-10 06:51 | RADRPT ---
EXAM DATE/TIME: 11/10/2017 05:58 [place] COMPARISON: CHEST PA & LAT, November 07, 2017, 10:44. INDICATIONS : Short of breath, coughing, hemoptysis, evaluate pneumonia MEDICAL HISTORY : hemoptysis SURGICAL HISTORY : None. ENCOUNTER: Subsequent ACUITY: 4 - 6 days PAIN SCORE: 10 LOCATION: Bilateral chest FINDINGS: A single portable frontal view of the chest shows minimal linear atelectasis within the left base. No infiltrates or effusions. Heart is mildly enlarged. Aorta is calcified. Scoliotic and degenerative s pine. CONCLUSION: Mild left basilar atelectasis. Rosalio Palumbo Jr., MD on November 10, 2017 at 6:49 Board Certified Radiologist. This report was verified electronically.
[2017-11-10 08:00] VITALS: BP 158/78; PULSE 63; RESP 17; TEMP 96.5; O2SAT 98
[2017-11-10] MEDS: SODIUM CHLOR 0.9% 1000 ML INJ 1,000 ML IV SCH (08:08)
[2017-11-10] MEDS: PANTOPRAZOLE SOD 40 MG DELAYED RELEASE TAB PO SCH (08:17)
[2017-11-10] MEDS: VALSARTAN 160 MG TAB PO SCH (08:17)
[2017-11-10] MEDS: FUROSEMIDE 20 MG TAB PO SCH (08:17)
[2017-11-10] MEDS: POTASSIUM CHLORIDE 10 MEQ CONTROLLED RELEASE TAB PO SCH (08:17)
[2017-11-10] MEDS: FENOFIBRATE 145 MG TAB PO SCH (08:17)
[2017-11-10] MEDS: ASPIRIN 81 MG CHEW TAB CHEW SCH (08:17)
[2017-11-10] MEDS: DOCUSATE SODIUM 50 MG/SENNA 8.6 MG TAB PO SCH (08:18)
[2017-11-10] MEDS: ATENOLOL 25 MG TAB PO SCH (08:18)
[2017-11-10] MEDS: SODIUM CHLORIDE 0.9% FLUSH 10 ML FLUSH IV FLUSH SCH (08:19)
[2017-11-10] MEDS: FLUTICASONE PROPIONATE 50 MCG/ACT 16 GM NASAL SPRAY EACH NARE SCH (08:20)
[2017-11-10] MEDS: RESP: ALBUTEROL 2.5 MG/IPRATROPIUM 0.5 MG NEB (SCH) NEB ×2 (09:03→11:40)
[2017-11-10 09:05] VITALS: O2SAT 97
[2017-11-10 12:00] VITALS: BP 132/61; PULSE 94; RESP 17; TEMP 98.4; O2SAT 100
[2017-11-10] MEDS ORDERED: DIOV160T6 PO (15:13)
[2017-11-10] MEDS ORDERED: LEVA750T9 PO (15:13)
--- NOTE | 2017-11-10 15:15 | HHI.FF ---
Face to Face Verification Diagnosis: (1) Hemoptysis (2) Bilateral pneumonia (3) Anemia Physical Therapy Order: Evaluate and Treat Occupational Therapy Order: Evaluate and Treat Home Health Nursing Order: Medical education Diabetic education CHF education Nursing assessment with vital signs I have seen patient Josef Day on 11/10/17. My clinical findings support the need for the requested home health care services because: Ltd mobility - disease progression Patient has SOB I certify that my clinical findings support that this patient is homebound because: Unsteady gait/balance Unsafe to leave home unassisted Shy Waddell MD Nov 10, 2017 15:15
--- NOTE | 2017-11-10 15:16 | HHI.PR ---
Subjective Remarks Patient frustrated because he wants to be discharged today Denied having any acute issue overnight Still on O2 nasal cannula Objective Vitals Vital Signs Date Time Temp Pulse Resp B/P (MAP) Pulse Ox O2 Delivery O2 Flow Rate FiO2 11/10/17 12:00 98.4 94 17 132/61 (84) 100 11/10/17 09:05 97 11/10/17 08:00 96.5 63 17 158/78 (104) 98 11/09/17 19:50 98.5 74 18 112/57 (75) 97 11/09/17 19:35 97 I/O 11/09/17 11/09/17 11/09/17 11/10/17 11/10/17 11/10/17 07:00 15:00 23:00 07:00 15:00 23:00 Intake Total 360 ml 1200 ml 2191 ml Output Total 250 ml 550 ml Balance 110 ml 1200 ml 1641 ml Intake Oral 360 ml 480 ml IV Total 1200 ml 1711 ml Output Urine Total 250 ml 550 ml # Bowel Movements 0 1 0 Result Diagram: 11/09/1770411/09/17704 Objective Remarks GENERAL: This is a well-nourished, well-developed patient, in no apparent distress. CARDIOVASCULAR: Regular rate and rhythm without murmurs, gallops, or rubs. RESPIRATORY: Left lower lobe crackles GASTROINTESTINAL: Abdomen soft, non-tender, nondistended. Positive bowel sounds MUSCULOSKELETAL: Extremities without clubbing, cyanosis, or edema. Pedal pulses appreciated NEUROLOGICAL: Awake and alert. Moves all extremity. Normal speech.no focal neurological deficit A/P Problem List: (1) Bilateral pneumonia ICD Code: J18.9 - Pneumonia, unspecified organism Status: Acute (2) Anemia ICD Code: D64.9 - Anemia, unspecified Status: Acute (3) Hemoptysis ICD Code: R04.2 - Hemoptysis Status: Acute Assessment and Plan 11/09: Discussed with pulmonology recommended repeating chest x-ray tomorrow, patient wants to be discharged will follow with trials manager, monitor temperature and oxygenation 11/10: Chest x-ray today with no changes, I discussed with Dr. Cee he recommended waiting until Dr. steele see patient, will discharge if cleared by Dr. Steele A/P: Mr. Day is a pleasant 87-year-old male with a extensive history of cancer including cancer of the thyroid, colon, adrenal gland, and prostate who presented to the emergency room on 11/07/2017 complaining of hemoptysis. Initial chest x-ray was negative for acute disease but CT PA showed bibasilar airspace disease worse on left than right. Source of hemorrhage was not specifically identified though presumed to be located in the left lower lobe. The patient was admitted to [facility] for medical management. Bilateral pneumonia Hemoptysis H/O sleep apnea patient using BiPAP at night encourage to bring his own machine to use at night. Antibiotics: IV Azithromycin and Rocephin Duo nebulizers every 2 hours as needed for shortness of breath or wheezing Duo nebulizers every 4 hours while awake Consult pulmonology - appreciate assistance Consult physical therapy to avoid debility O2 supplement as need keep O2 sat > 92 % Anemia possibly secondary to hemoptysis - most recent labs for comparison are from 2004 Hemoglobin 10.3, hematocrit 30.3 on admission. Stable Recheck CBC in a.m. Monitor H/H - transfuse if hemoglobin drops below 7 Acute on chronic renal failure BUN 19, creatinine 1.60, EGFR 40 Gentle IV fluid hydration with normal saline at 75 cc per hour Repeat BMP in a.m. and follow trends in renal indices Avoid nephrotoxins DVT prophylaxis - chemoprophylaxis contraindicated with hemoptysis/anemia; SCDs Discharge Planning Once cleared by pulmonology Problem Qualifiers (1) Bilateral pneumonia: Qualified Codes: J18.9 - Pneumonia, unspecified organism (2) Anemia: Qualified Codes: D64.9 - Anemia, unspecified Shy Waddell MD Nov 10, 2017 15:16
[2017-11-10] MEDS: cefTRIAXone INJ 1,000 MG in SODIUM CHLORIDE 0.9% INJ 100 ML IV SCH (15:21)
--- NOTE | 2017-11-10 15:34 | HHI.DS ---
Discharge Summary Admission Date Nov 07, 2017 at 15:23 Discharge Date: Nov 10, 2017 Admitting Diagnosis Hemoptysis, bibasilar airspace disease, anemia (1) Bilateral pneumonia ICD Code: J18.9 - Pneumonia, unspecified organism Status: Acute (2) Anemia ICD Code: D64.9 - Anemia, unspecified Status: Acute (3) Hemoptysis ICD Code: R04.2 - Hemoptysis Status: Acute Procedures See below Brief History - From Admission Mr. Day is a pleasant 87-year-old male with a extensive history of cancer including cancer of the thyroid, colon, adrenal gland, and prostate who presented to the emergency room on 11/07/2017 complaining of hemoptysis. Initial chest x-ray was negative for acute disease but CT PA showed bibasilar airspace disease worse on left than right. Source of hemorrhage was not specifically identified though presumed to be located in the left lower lobe. The patient was admitted to [facility] for medical management. The patient is seen in his hospital room. He reports a 2-3 day history of hemoptysis. He states he had a similar episode previously and was diagnosed with pneumonia. He denies any shortness of breath, fever, chills, nausea, vomiting, diarrhea, chest pain, or recent illness. He is anxious to return home to care for his who suffers from dementia despite the fact that she is currently being watched over by his [id number]. The patient himself has some mild cognitive deficits apparent. CBC/BMP: 11/09/17 0705 11/09/17 0705 Significant Findings Laboratory Tests Test 11/08/17 06:35 11/09/17 07:05 Red Blood Count 3.42 MIL/MM3 (4.50-5.90) 3.50 MIL/MM3 (4.50-5.90) Hemoglobin 9.7 GM/DL (13.0-17.0) 9.9 GM/DL (13.0-17.0) Hematocrit 28.8 % (39.0-51.0) 29.3 % (39.0-51.0) Neutrophils (%) (Auto) 75.9 % (16.0-70.0) 73.4 % (16.0-70.0) Lymphocytes # (Auto) 0.7 TH/MM3 (1.0-4.8) 0.8 TH/MM3 (1.0-4.8) Random Glucose 126 MG/DL (74-106) 116 MG/DL (74-106) Potassium Level 3.3 MEQ/L (3.5-5.1) 3.4 MEQ/L (3.5-5.1) Chloride Level 108 MEQ/L (98-107) 109 MEQ/L (98-107) Estimat Glomerular Filtration Rate 58 ML/MIN (>89) 54 ML/MIN (>89) PE at Discharge GENERAL: This is a well-nourished, well-developed patient, in no apparent distress. CARDIOVASCULAR: Regular rate and rhythm without murmurs, gallops, or rubs. RESPIRATORY: Left lower lobe crackles GASTROINTESTINAL: Abdomen soft, non-tender, nondistended. Positive bowel sounds MUSCULOSKELETAL: Extremities without clubbing, cyanosis, or edema. Pedal pulses appreciated NEUROLOGICAL: Awake and alert. Moves all extremity. Normal speech.no focal neurological deficit Hospital Course Mr. Day is a pleasant 87-year-old male with a extensive history of cancer including cancer of the thyroid, colon, adrenal gland, and prostate who presented to the emergency room on 11/07/2017 complaining of hemoptysis. Initial chest x-ray was negative for acute disease but CT PA showed bibasilar airspace disease worse on left than right. Source of hemorrhage was not specifically identified though presumed to be located in the left lower lobe. The patient was admitted to [facility] for medical management. Bilateral pneumonia Hemoptysis H/O sleep apnea patient using BiPAP at night encourage to bring his own machine to use at night. Antibiotics: IV Azithromycin and Rocephin Duo nebulizers every 2 hours as needed for shortness of breath or wheezing Duo nebulizers every 4 hours while awake Consult pulmonology - appreciate assistance Consult physical therapy to avoid debility O2 supplement as need keep O2 sat > 92 % Anemia possibly secondary to hemoptysis - most recent labs for comparison are from 2004 Hemoglobin 10.3, hematocrit 30.3 on admission. Stable Recheck CBC in a.m. Monitor H/H - transfuse if hemoglobin drops below 7 Acute on chronic renal failure BUN 19, creatinine 1.60, EGFR 40 Gentle IV fluid hydration with normal saline at 75 cc per hour Repeat BMP in a.m. and follow trends in renal indices Avoid nephrotoxins [id number]-lsmt encounter performed with the patient on discharge day, as well as physical exam, summary of hospitalization course and postdischarge plan has been D/W the patient. D/W nurse D/W nurse case management. Discharge medications reviewed and printed and signed, post discharge follow up visit with PCP and other specialist as well as Brief hospital course and discharge summary has been placed. Pt Condition on Discharge: Fair Discharge Disposition: Disch w/ Home Health Serv Discharge Time: > 30 minutes Discharge Instructions DIET: Follow Instructions for: Heart Healthy Diet, Diabetic Diet Activities you can perform: See Additionl Instruction Other Activity Instructions: per PT Follow up Referrals: Pulmonology - 1 Week with Jonn Lunsford MD New Medications: Levofloxacin (Levaquin) 750 Mg Tablet 750 MG PO DAILY for Infection for 5 Days, #5 TAB 0 Refills Valsartan (Diovan) 160 Mg Tab 320 MG PO DAILY for htn, #30 TAB Continued Medications: Amlodipine-Valsartan (Exforge) 10-320 Mg Tab 1 TAB PO DAILY for Blood Pressure Management, #30 TAB 0 Refills Aspirin (Aspirin) 81 Mg Chew 81 MG CHEW DAILY, TAB 0 Refills Atenolol (Atenolol) 25 Mg Tab 25 MG PO DAILY for Blood Pressure Management, #30 TAB Azelastine Nasal Damar (Azelastine Nasal Damar) 0.1% Damar 1 SPRAY EACH NARE BID for Allergies, #1 BOTTLE [address] (Nexium) 40 Mg Capdr 40 MG PO DAILY, CAP 0 Refills Fenofibrate (Lipofen) 150 Mg Cap 150 MG PO DAILY, #30 CAP 0 Refills Fluticasone Nasal Damar (Fluticasone Nasal Damar) 50 Mcg/Act Naspr 50 MCG EACH NARE BID for Allergy Management, #1 BOTTLE 0 Refills 50 mcg/spray Furosemide (Furosemide) 20 Mg Tab 20 MG PO DAILY, #30 TAB 0 Refills Ipratropium HFA 12.9 GM Inh (Atrovent HFA 12.9 GM Inh) 17 Mcg/Actuation Aer 2 PUFF INH BID, #1 INHALER 0 Refills Levothyroxine (Levothyroxine) 125 Mcg Tab 125 MCG PO DAILY for Thyroid, #30 TAB 0 Refills Metformin (Metformin) 500 Mg Tab 500 MG PO DAILY for Blood Sugar Management, #30 TAB 0 Refills With a meal Potassium Chloride ER (Klor-Con 10) 10 Meq Tab 10 MEQ PO DAILY for Electrolyte Replacement, #30 TAB 0 Refills Shy Waddell MD Nov 10, 2017 15:34
--- NOTE | 2017-11-10 16:14 | HHI.PR ---
Subjective Remarks alert no sob eager to go home no hemoptysis Objective Vital Signs Date Time Temp Pulse Resp B/P (MAP) Pulse Ox O2 Delivery O2 Flow Rate FiO2 11/10/17 12:00 98.4 94 17 132/61 (84) 100 11/10/17 09:05 97 11/10/17 08:00 96.5 63 17 158/78 (104) 98 11/09/17 19:50 98.5 74 18 112/57 (75) 97 11/09/17 19:35 97 I/O 11/09/17 11/09/17 11/09/17 11/10/17 11/10/17 11/10/17 07:00 15:00 23:00 07:00 15:00 23:00 Intake Total 360 ml 1200 ml 2191 ml 480 ml Output Total 250 ml 550 ml 250 ml Balance 110 ml 1200 ml 1641 ml 230 ml Intake Oral 360 ml 480 ml 480 ml IV Total 1200 ml 1711 ml Output Urine Total 250 ml 550 ml 250 ml # Voids 2 # Bowel Movements 0 1 0 0 Result Diagram: 11/09/17 0711/09/17 07 Objective Remarks GENERAL: SKIN: Warm and dry. HEAD: Atraumatic. Normocephalic. EYES: Pupils equal and round. No scleral icterus. No injection or drainage. ENT: No nasal bleeding or discharge. Mucous membranes pink and moist. NECK: Trachea midline. No JVD. CARDIOVASCULAR: Regular rate and rhythm. RESPIRATORY: No accessory muscle use. Clear to auscultation. Breath sounds equal bilaterally. GASTROINTESTINAL: Abdomen soft, non-tender, nondistended. Hepatic and splenic margins not palpable. MUSCULOSKELETAL: Extremities without clubbing, cyanosis, or edema. No obvious deformities. NEUROLOGICAL: Awake and alert. No obvious cranial nerve deficits. Motor grossly within normal limits. Five out of 5 muscle strength in the arms and legs. Normal speech. PSYCHIATRIC: Appropriate mood and affect; insight and judgment normal. Assessment and Plan Assessment and Plan minor hemoptysis copd ankush stable plan ok for D/C on po antibx office 1 week Jonn Lunsford MD Nov 10, 2017 16:14
[2017-11-12] MEDS ORDERED: CEPH500T PO (13:10)
== END 2017-11-10 17:12 | disposition home health service (06) | DRG 194 ==
LOC: NEPC 10:18 → NEDA 15:23 → N06B 17:03
PROVIDERS: ADMIT Hospitalist; ATTEND Hospitalist
DX: J18.9 Pneumonia, unspecified organism (principal); R04.2 Hemoptysis; N17.9 Acute kidney failure, unspecified; J44.0 Chronic obstructive pulmonary disease with (acute) lower respiratory infection; D50.0 Iron deficiency anemia secondary to blood loss (chronic); I48.91 Unspecified atrial fibrillation; Z86.718 Personal history of other venous thrombosis and embolism; R41.89 Other symptoms and signs involving cognitive functions and awareness; J44.9 Chronic obstructive pulmonary disease, unspecified; H91.90 Unspecified hearing loss, unspecified ear; L50.0 Allergic urticaria; I10 Essential (primary) hypertension; T36.3X5A Adverse effect of macrolides, initial encounter; G47.33 Obstructive sleep apnea (adult) (pediatric); E89.0 Postprocedural hypothyroidism; Z79.82 Long term (current) use of aspirin; Z23 Encounter for immunization; Z85.850 Personal history of malignant neoplasm of thyroid; Z85.46 Personal history of malignant neoplasm of prostate; Z85.038 Personal history of other malignant neoplasm of large intestine; Z87.01 Personal history of pneumonia (recurrent); Z85.828 Personal history of other malignant neoplasm of skin; Z87.891 Personal history of nicotine dependence; Z90.49 Acquired absence of other specified parts of digestive tract; Z86.011 Personal history of benign neoplasm of the brain
CPT/HCPCS: 71045; 71046; 71275; 80048; 80053; 82948; 85025; 85610; 85730; 86403; 86850; 86900; 86901; 87070; 87147; 87186; 87205; 87449; 90732; 93005; 94640; 94664; 99285; J0456; J0696; J7030; J7050; Q9967